=== PATIENT | female | born 1970 | race Caucasian/White ===

== ENCOUNTER → 2021-03-04 13:39 | Outpatient (BNVA) | payer BC, SELFPAY | PROVIDERS: Family Provider Family Medicine; Visit Provider Nurse Practitioner | DX: S69.90XA Unspecified injury of unspecified wrist, hand and finger(s), initial encounter (principal); W23.0XXA Caught, crushed, jammed, or pinched between moving objects, initial encounter | CPT/HCPCS: 73130 ==

== ENCOUNTER → 2023-04-10 10:52 | Outpatient (BNVA) | payer BC, SELFPAY | PROVIDERS: Family Provider Family Medicine; PCP Family Medicine; Visit Provider Family Medicine | DX: R10.13 Epigastric pain (principal); Z51.81 Encounter for therapeutic drug level monitoring; E11.65 Type 2 diabetes mellitus with hyperglycemia | CPT/HCPCS: 80053; 80061; 82962; 83036; 83690; 85025 ==

== ENCOUNTER 2023-04-16 08:12 | Emergency (ER) | payer BC, SELFPAY ==
[2023-04-16 08:20] VITALS: BP 166/81; PULSE 94; RESP 16; TEMP 36.5; O2SAT 100; BMI 35.4
--- NOTE | 2023-04-16 08:38 | ED_ITS ---
HPI - Abdominal Pain 2 General: Chief Complaint: Abdominal Pain Stated Complaint: abd pain Time Seen by Provider: 04/16/23 08:13 Source: patient Mode of arrival: ambulatory History of Present Illness: 52-year-old female presents emergency ro om with complaint of right upper quadrant abdominal pain and epigastric pain. States gets worse when she eats tomato-based sauces and mustard. She has had some acholic stools. She has had multiple previous abdominal surgery including appendectomy oophorectomy subsequent total abdominal hysterectomy and lysis of adhesions. She has not had any dysuria urgency or frequency no hematochezia melena hematemesis or coffee- ground emesis. Overnight she had worsening symptoms. States every hour and a half she would have a wave of sharp abdominal pain radiating from her right upper quadrant into her back at times she states even down to her hips. No fever sweats or chills no recent illness MD elicited complaint: abdominal pain Onset (ago): week(s) Pain Consistency: intermittent Location: Epigastric and RUQ Severity: severe Quality: sharp Radiation: none Migration to: other Associated Symptoms: Reports nausea; Denies chills, dysuria and fever(s) Review of Systems 2 Const: Denies: fever(s) or chills Card: Denies: chest pain Resp: Denies: dyspnea GI: Reports: abdominal pain, nausea and white/light colored stool : Denies: flank pain, dysuria, urinary frequency or urinary urgency Musc: Reports: back pain; Denies: neck pain Skin/Breast: Denies: rash PFSH ED 2 PFSH: Medical History (Updated 04/16/23 @ 12:53 by Jimmie Hanks DO) Diabetes type 2, uncontrolled Surgical History (Updated 04/10/23 @ 14:13 by Mino Blackwell MD) History of appendectomy S/P laparotomy with lysis of adhesions Hx of hysterectomy With BLO, history of tubal with ovarian removal Hx of cervical spine surgery C6-C& discs removed History of adenoidectomy S/P trigger finger release right long finger Family History (Updated 04/10/23 @ 14:14 by Mino Blackwell MD) Mother Colon cancer, Onset Age: 64 Hypertension Father Colon cancer Colonic polyps since his 40's Hypertension Social History (Updated 04/10/23 @ 14:15 by Mino Blackwell MD) Smoking and tobacco/nicotine status: current every day tobacco/nicotine user e- cigarettes E-Cigarette Details: vaporizer device E-cig/vape details: Almost a full cansiter of vaping per day. About 2.4ml per day. Alcohol intake: never Substance/Drug Use: never Additional social history: 40-60 pack year smoking history Physical Exam 2 Const: GENERAL APPEARANCE: cooperative and comfortable O RIENTATION/CONSCIOUSNESS: Yes awake, Yes oriented to person, Yes oriented to place and Yes oriented to time HENMT: COMMON NORMALS: normocephalic, atraumatic and hearing grossly normal bilaterally HEAD & SCALP: normocephalic and atraumatic Resp: COMMON NORMALS: normal respiratory effort, No retractions, No use of accessory muscles and clear to auscultation bilaterally AUSCULTATION: clear to auscultation bilaterally Cardio: COMMON NORMALS: regular rate, regular rhythm and No murmurs present (Cardio) RATE: regular rate RHYTHM: regular rhythm GI: COMMON NORMALS: No hepatosplenomegaly present AUSCULTATION: Yes normoactive bowel sounds PALPATION: Yes Tenderness to palpation present (GI) Details: RUQ, No Guarding due to palpation present (GI) and Yes No hepatosplenomegaly present Extremity: COMMON NORMALS: normal to inspection, capillary refill normal, no clubbing, cyanosis or edema, no calf tenderness and no pedal edema Neuro: SENSORIUM/ORIENTATION: Yes oriented to person, Yes oriented to place and Yes oriented to time Skin: COMMON NORMALS: no rashes or lesions noted GENERAL SKIN EXAM: no rashes or lesions noted Course 2 Vital Signs: Vital signs: Vital Signs Temperature 97.7 F 04/16/23 08:20 Pulse Rate 94 04/16/23 08:20 Respiratory Rate 16 04/16/23 08:20 Blood Pressure 166/81 04/16/23 08:20 Pulse Oximetry 100 04/16/23 08:20 Oxygen Delivery Me thod Room Air 04/16/23 08:20 MDM - Abdominal Pain Medical Decision Making Patient recently started on Lantus and on metformin. She does have ketones in her urine but blood sugars not significantly elevated and her anion gap is normal. I think some of this may come as well from she markedly altered her diet recently when told she was significantly diabetic and started on the medications. Her symptoms are reminiscent of biliary colic liver functions are elevated she does not have an elevated T. bili and her imaging is normal. Discharge home clear liquid 24 to 48 hours Protonix 40 mg daily. Gave hydrocodone to use for pain encouraged her to follow-up with her primary care doctor to review medications and consider further imaging such as HIDA scan. Lab Data 04/16/23 08:50 04/16/23 08:50 Labs/Radiology: Laboratory Results WBC 6.88 10^3/uL (3.29-11.43) 04/16/23 08:50 RBC 5.56 10^6/uL (3.85-5.65) 04/16/23 08:50 Hgb 15.80 g/dL (11.27-16.99) 04/16/23 08:50 Hct 48.0 % (36-47) H 04/16/23 08:50 MCV 86.3 fl (85-98) 04/16/23 08:50 MCH 28.4 pg (27-33) 04/16/23 08:50 MCHC 32.9 g/dL (30-55) 04/16/23 08:50 RDW 12.9 % (12.1-15.1) 04/16/23 08:50 Plt Count 243 10^3/cmm (157-399) 04/16/23 08:50 MPV 10.6 fL (7.4-10.4) H 04/16/23 08:50 Neut % (Auto) 65.1 % 04/16/23 08:50 Lymph % (Auto) 26.5 % 04/16/23 08:50 [place] % (Auto) 7.1 % 04/16/23 08:50 Eos % (Auto) 0.6 % 04/16/23 08:50 Baso % (Auto) 0.4 % 04/16/23 08:50 Neut # (Auto) 4.48 10^3/uL (1.8-7.7) 04/16/23 08:50 Lymph # (Auto) 1.8 10^3/uL (0.8-4.8) 04/16/23 08:50 [place] # (Auto) 0.5 10^3/uL (0.2-0.9) 04/16/23 08:50 Eos # (Auto) 0.0 10^3/uL (0.0-0.8) 04/16/23 08:50 Baso # (Auto) 0.0 10^3/uL (0.0-0.1) 04/16/23 08:50 Nucleated RBC % (auto) 0 % 04/16/23 08:50 Nucleated RBCs # 0.0 /100WBC 04/16/23 08:50 Sodium 138 mmol/L (136-145) 04/16/23 08:50 Potassium 4.2 mmol/L (3.5-5.1) 04/16/23 08:50 Chloride 103 mmol/L (98-107) 04/16/23 08:50 Carbon Dioxide 21 mmol/L (22-29) L 04/16/23 08:50 Anion Gap 18.2 (5-19) 04/16/23 08:50 BUN 7 mg/dL (6-20) 04/16/23 08:50 Creatinine 0.5 mg/dL (0.5-0.9) 04/16/23 08:50 GFR Calculation 128.6 mL/min (90-130) 04/16/23 08:50 Glucose 139 mg/dL (65-115) H 04/16/23 08:50 Calculated Osmolality 286 mOsm/kg (285-295) 04/16/23 08:50 Calcium 9.4 mg/dL (8.5-10.5) 04/16/23 08:50 Total Bilirubin 0.4 mg/dL (0.15-1.2) 04/16/23 08:50 AST 130 U/L (0-32) H 04/16/23 08:50 ALT 133 U/L (0-33) H 04/16/23 08:50 Alkaline Phosphatase 142 U/L (35-105) H 04/16/23 08:50 Total Protein 7.7 g/dL (6.6-8.7) 04/16/23 08:50 Albumin 4.0 g/dL (3.5-5.2) 04/16/23 08:50 Globulin 3.7 g/dL (1.3-4.6) 04/16/23 08:50 Lipase 46 U/L (13-60) 04/16/23 08:50 Urine Color Yellow (Yellow) 04/16/23 09:33 Urine Appearance Clear (CLEAR) 04/16/23 09:33 Urine pH 5 (5-7) 04/16/23 09:33 Ur Specific [place] 1.025 (1.005-1.030) 04/16/23 09:33 Urine Protein Neg (Negative) 04/16/23 09:33 Urine Glucose (UA) Norm (Normal) 04/16/23 09:33 Urine Ketones 2+ (Negative) H 04/16/23 09:33 Urine Blood Neg (Negative) 04/16/23 09:33 Urine Nitrate Negative (Negative) 04/16/23 09:33 Urine Bilirubin Neg (Negative) 04/16/23 09:33 Urine Urobilinogen Norm mg/dL (Negative) 04/16/23 09:33 Ur Leukocyte Esterase Negative (Negative) 04/16/23 09:33 All radiology interpretation(s) finalized by discharge Discharge Plan Discharge Patient Disposition: Home Clinical Impression: Biliary colic, Diabetes type 2, uncontrolled Condition: Stable Prescriptions: New Protonix 40 mg tablet,delayed release (DR/EC) 40 mg PO DAILY Qty: 30 0RF hydrocodone-acetaminophen 5-325 mg tablet 1 tab PO Q6H PRN (Reason: pain) Qty: 10 0RF No Action (DME) pen needle, diabetic [TechLITE Pen Needle] 31 gauge x 5/16 needle See Rx Instructions .ROUTE .MEDSUPPLY Qty: 100 6RF Rx Instructions: As directed (DME) blood-glucose meter Kit See Rx Instructions .ROUTE .MEDSUPPLY Qty: 1 0RF Rx Instructions: As directed (DME) lancets [OneTouch Delica Plus Lancet] 33 gauge misc See Rx Instructions .ROUTE .MEDSUPPLY Qty: 100 12RF Rx Instructions: As directed (DME) OneTouch Ultra Test Strip See Rx Instructions .Route Qty: 100 3RF Rx Instructions: As directed (DME) blood-glucose meter [OneTouch Ultra2 Meter] Misc See Rx Instructions .Route Qty: 1 0RF Rx Instructions: As directed Liver & Gallbladder Cleanse 1 tab PO .QD- USED FOR 2 DAYS metformin 500 mg tablet See Rx Instructions .ROUTE .COMPLEX Rx Instructions: Take 500mg daily x 1 wk, then 500mg BID for 1 wk, then 1000mg in am and 500mg in pm, then 1000mg BID Lantus Solostar U-100 Insulin 100 unit/mL (3 mL) insulin pen 20 unit SUBCUT BEDTIME Rx Instructions: Inject 20 units each hs SQ. Increase by 5 units every 3 days that fasting glucose>150 Discharge Orders: Discharge ED (Routine); Ordered 04/16/23 Ordered By: iJmmie Hanks Referrals: Mino Blackwell MD [Primary Care Provider] - Discharge Diet: As Directed Discharge Activity: Increase activity as tolerated Patient Instructions: Abdominal Pain (ED), Opioid Safety, Pain Management Activity Restrictions/Additional Instructions: Thank you for choosing [facility] for your healthcare needs today. Please realize this is an emergency room and that we are providing you with a medical screening exam and this may not be complete and all inclusive of all the testing and or work up that you may need to determine your ailment or severity of your illness. It is very important that you follow up as instructed or that you return to the Emergency Department should you have concerns or if your condition changes or worsens in any way. Follow-up with your primary care doctor within the next 1 to 2 weeks Coding Level of Care Code ED Building Architectural Designer for Yomi Wren
[2023-04-16] MEDS: sodium chloride 0.9% 1,000 ML 999 ML IV (08:51)
[2023-04-16 08:55] LABS: Basophils % 0.4 %; Eosinophils % 0.6 %; Lymphocytes # 1.8 10^3/uL (0.8-4.8); Lymphocytes % 26.5 %; Mean Corpuscular HGB Conc 32.9 g/dL (30-55); Mean Corpuscular Hemoglobin 28.4 pg (27-33); Mean Corpuscular Volume 86.3 fl (85-98); Mean Platelet Volume 10.6 fL (7.4-10.4); Monocytes # 0.5 10^3/uL (0.2-0.9); Monocytes % 7.1 %; Neutrophils # 4.48 10^3/uL (1.8-7.7); Neutrophils % 65.1 %; Nucleated Red Blood Cells % 0 %; Platelet Count 243 10^3/cmm (157-399); Red Blood Count 5.56 10^6/uL (3.85-5.65); Red Cell Distribution Width 12.9 % (12.1-15.1); White Blood Count 6.88 10^3/uL (3.29-11.43)
[2023-04-16 09:15] LABS: Alanine Aminotransferase 133 U/L (0-33); Alkaline Phosphatase 142 U/L (35-105); Anion Gap 18.2 (5-19); Aspartate Amino Transferase 130 U/L (0-32); Blood Urea Nitrogen 7 mg/dL (6-20); Calcium 9.4 mg/dL (8.5-10.5); Carbon Dioxide 21 mmol/L (22-29); Chloride 103 mmol/L (98-107); Globulin 3.7 g/dL (1.3-4.6); Glomerular Filtration Rate 128.6 mL/min (90-130); Glucose 139 mg/dL (65-115); Lipase 46 U/L (13-60); Osmolality Calculated 286 mOsm/kg (285-295); Potassium 4.2 mmol/L (3.5-5.1); Sodium 138 mmol/L (136-145); Total Bilirubin 0.4 mg/dL (0.15-1.2); Total Protein 7.7 g/dL (6.6-8.7)
[2023-04-16 09:46] LABS: Add Urine Microscopic? NO; Charge for UA Resulting for Rev
[2023-04-16 09:59] LABS: Bilirubin Urine Neg (Negative); Blood Urine Neg (Negative); Glucose Urine UA Norm (Normal); Ketones Urine 2+ (Negative); Leukocyte Esterase Urine Negative (Negative); Nitrate Urine Negative (Negative); Protein Urine Neg (Negative); Specific Gravity, Urine 1.025 (1.005-1.030); Urine Appearance Clear (CLEAR); Urine Color Yellow (Yellow); Urobilinogen Urine Norm (Negative); pH Urine 5 (5-7)
--- NOTE | 2023-04-16 10:54 | US_ITS ---
WS: [id number] RIGHT UPPER QUADRANT ULTRASOUND HISTORY: elevated LFTs COMPARISON: None available. Liver: 12.6 cm in length. Poorly visualized liver due to hepatic steatosis and body habitus. The enti re liver is not well visualized. Coarse echotexture. No mass. Portal Vein: Normal hepatopetal flow with monophasic waveform. Gallbladder: Normally distended gallbladder with no stones or wall thickening. CBD: 0.3 cm Pancreas: Obscured by bowel gas. Right kidney: 12.0 cm in length. Normal size and echogenicity. No hydronephrosis or mass. Aorta and IVC: Unremarkable abdominal aorta and IVC. No ascites. IMPRESSION: 1. Normal gallbladder. 2. Limited visualization of the liver and pancreas. 3. Hepatic steatosis.
--- NOTE | 2023-04-16 11:13 | ECG_ITS ---
[facility] Test Date: 2023-04-16 Pat Name: Katherine Belcher Department: Room: Gender: Female Product Development Technician: : 1970 Requested By: Jimmie Evans Order Number: [id number] Laverne MD: Paolo Ji M.D. Measurements Intervals [place] Rate: 97 P: 64 [place]: 167 QRS: -1 QRSD: 85 T: 33 QT: 365 QTc: 464 Interpretive Statements SINUS RHYTHM NONSPECIFIC T-WAVE ABNORMALITY No previous ECG available for comparison Electronically Signed On 04-16-2023 14:20:50 REMOTE SENSING ENGINEER by Paolo Ji M.D. [email or web address]
== END 2023-04-16 13:13 | disposition home or self-care (01) ==
PROVIDERS: Emergency Provider Family Medicine; PCP Family Medicine
DX: K80.50 Calculus of bile duct without cholangitis or cholecystitis without obstruction (principal); E11.69 Type 2 diabetes mellitus with other specified complication
CPT/HCPCS: 76705; 80053; 81003; 83690; 85025; 93005; 96360; 96361; 99284; J7030

== ENCOUNTER → 2023-07-14 07:32 | Outpatient (BNVA) | payer BC, SELFPAY | PROVIDERS: PCP Family Medicine; Visit Provider Family Medicine | DX: Z13.220 Encounter for screening for lipoid disorders (principal); R74.01 Elevation of levels of liver transaminase levels; E11.9 Type 2 diabetes mellitus without complications; Z51.81 Encounter for therapeutic drug level monitoring | CPT/HCPCS: 80053; 80061; 83036; 85025; 86803; 87340 ==

== ENCOUNTER 2023-07-23 07:34 | Outpatient (CLI) | payer BC, SELFPAY ==
--- NOTE | 2023-07-23 08:00 | MM_ITS ---
WS: [id number] BILATERAL SCREENING DIGITAL TOMOSYNTHESIS MAMMOGRAM WITH CAD HISTORY: Screening mammogram COMPARISON: 05/13/2018 Bilateral CC and MLO views with tomosynthesis and synthetic mammography submitted. Computer aided det ection analyzed. Breast composition: There are scattered areas of fibroglandular density. No suspicious masses, microc alcifications or architectural distortion. IMPRESSION: MM/[place] [id number] BI-RADS: 1-Negative FOLLOW UP: 1 Year Follow-up
== END 2023-07-23 07:35 | disposition home or self-care (01) ==
LOC: RAD 07:34
PROVIDERS: PCP Family Medicine; Visit Provider Family Medicine
DX: Z12.31 Encounter for screening mammogram for malignant neoplasm of breast (principal)
CPT/HCPCS: 77063; 77067